=== PATIENT | female | born 1990 | race Two or more races ===

== ENCOUNTER 2017-03-10 16:12 | Inpatient (IN) | payer OTHER ==
[~2017-03-10] VITALS: Ht 160 cm; Wt 82.1 kg
[2017-03-10 16:34] VITALS: BP 114/80; PULSE 91; RESP 20; Ht 160 cm; Wt 82.1 kg
[2017-03-10] MEDS ORDERED: PRENAT PO (17:39)
--- NOTE | 2017-03-10 17:52 | RADRPT ---
PROCEDURE: US biophysical profile. CLINICAL INDICATION: Decreased motion. TECHNIQUE: Multiple sonographic images of the uterus were obtained. The images were revi ewed on a PACS workstation. COMPARISON: No prior studies are available for comparison. FINDINGS: There is a single live intrauterine gestation. heart rate is 139 beats per minute. The position is cephalic. The placenta is anterior grade II with no abruption or previa. The STACY is 12.4 cm. (Normal = 5-20 cm.) Breathing Movement: 2 Gross Body Movement: 2 Tone: 2 Qualitative Amniotic Fluid Volume: 2 TOTAL: 8 IMPRESSION: 1. The biophysical score is 8/8. RPTAT: QQ .Conor Schneider MD, MD Date Time Electronically viewed and signed by .Conor Schneider MD, on 03/10/2017 17:52 .R/
[2017-03-10 18:03] LABS: ADD UMIC NO; UR ASCORBIC ACID NEGATIVE (NEGATIVE); UR BILIRUBIN (Dip) NEGATIVE (NEGATIVE); UR BLOOD (Dip) NEGATIVE (NEGATIVE); UR CLARITY CLEAR (CLEAR); UR COLOR YELLOW (YELLOW); UR GLUCOSE (Dip) NEGATIVE (NEGATIVE); UR KETONES (Dip) NEGATIVE (NEGATIVE); UR LEUKOCYTE ESTERASE (Dip) NEGATIVE Leu/ul (NEGATIVE); UR NITRITE (Dip) NEGATIVE (NEGATIVE); UR SPECIFIC GRAVITY (Dip) 1.013 (1.003-1.030); UR TOTAL PROTEIN (Dip) NEGATIVE (NEGATIVE); UR UROBILINOGEN (Dip) NEGATIVE (NEGATIVE)
--- NOTE | 2017-03-10 18:48 | RADRPT ---
PROCEDURE: Obstetrical ultrasound CLINICAL INDICATION: POSTDATES, low STACY TECHNIQUE: Multiple sonographic images of the pelvis were obtained. The images were reviewed on a PACS workstation. COMPARISON: None FINDINGS: The cervix is not well visualized. There is a single viable intrauterine gestation. Cardiac activity is present with 129 beats per minute. There is a vertex presentation. The placenta is anterior. There is no evidence for an abruption or placenta previa. There is a subjectively normal amount of amniotic fluid. Measurements were made in order to determine age. The results are as follows (cm): BPD =9.62 HC =34.31 AC =35.18 FL =7.64 Estimated gestational age by ultrasound of approximately 39 weeks, 2 days. The estimated date of delivery by ultrasound is 03/15/2017. Estimated gestational age by LMP of approximately 40 weeks, 1 day. The estimated date of delivery by LMP is 03/09/2017. EFW = 3706 grams (55th percentile) IMPRESSION: Single viable intrauterine gestation of approximately 39 weeks, 2 days . The estimated date of delivery is 03/15/2017 . Dating by ultrasound is within 6 days of dating by LMP. Cephalic presentation. Subjectively normal amount of amniotic fluid. Estimated weight is in the 55th percentile. RPTAT: EE Physician Oalf Date Time Electronically viewed and signed by Physician Olaf on 03/10/2017 18:48 /
[2017-03-10] MEDS ORDERED: DINOPROSTONE 10 MG VAG SUPP VAG ONE (23:30)
[2017-03-10] MEDS ORDERED: OXYTOCIN 30 UNITS/LR 500 ML IV PRN (23:30)
[2017-03-10] MEDS ORDERED: OXYTOCIN 30 UNITS/LR 500 ML IV SCH ×2 (23:30)
[2017-03-10] MEDS ORDERED: METHYLERGONOVINE 0.2 MG INJ IM PRN (23:30)
[2017-03-10] MEDS ORDERED: CARBOPROST 250 MCG INJ IM PRN (23:30)
[2017-03-10] MEDS ORDERED: IBUPROFEN 600 MG TAB PO PRN (23:30)
[2017-03-10] MEDS ORDERED: LIDOCAINE 1% (MPF) 30 ML INJ INJ PRN (23:30)
[2017-03-10] MEDS ORDERED: MISOPROSTOL 200 MCG TAB PR PRN (23:30)
[2017-03-10] MEDS ORDERED: ACETAMINOPHEN/CODEINE #3 TAB PO PRN (23:30)
[2017-03-10] MEDS ORDERED: BUTORPHANOL 2 MG INJ IV PRN (23:30)
--- NOTE | 2017-03-11 00:12 | HP ---
Date/Time of Note Date/Time of Note DATE: 03/11/17 TIME: 00:06 OB - History Hx of Present Free Text/Dictation 26 years old with IUP at 40 weeks and 4 days presented with complaint of contractions. She was noted to have minimal cervical change. requested induction for post date. Denies any LOF. vaginal bleeding or decreased movement. BRENDAN:03/06/2017 exam : 1/60/-2 vertex. FHT: cat 1 Chief Complaint: labor pain Estimated Due Date: Mar 06, 2017 : 2 Para: 0 Spontaneous : 0 Care: Good Care Medical Complications: None Past Family/Social History * Past Medical, Surgical, Family and Obstetric Histories reviewed from chart. OB Admission Exam Vital Signs Vital Signs Vital Signs Date Time Temp Pulse Resp B/P Pulse Ox O2 Delivery O2 Flow Rate FiO2 03/10/17 16:34 98.5 91 20 114/80 Room Air Physical Exam HEENT: WNL Heart: Rhythm Normal Lungs: Clear Abdomen: WNL Extremities: Normal Reflexes: Normal Cervical Dilatation: 1cm Effacement: 25% Station: -2 Heart Rate: 130's Accelerations: Accelerations Present Decelerations: No Decelerations Varibility: Moderate Contractions on Admission: < 5 Minutes Apart Intensity: Moderate OB Assessment/Plan Other Assessment: IUP at 40 weeks and 4 days Early labor Post date Unfavorable cervix Cat 1 tracing Requests induction for post date Risks and benefits of induction including increased risk for section discussed Candidate for cervidil induction Anticipate Obtain GBS results DAMASO AMOS MD Mar 11, 2017 00:12
--- NOTE | 2017-03-11 01:01 | TRIAGE ---
OB Triage Datetime Report Generated by CPN: 03/11/2017 01:01 Datetime: 03/11/2017 00:30 Stage of : OB Triage Labor Evaluation Frequency: 1.5-4 Monitor Mode: External Duration (sec)2399: 70-90 Quality: Moderate Pattern: Normal: <= 5 Contractions in 10 Minutes Resting Tone [place]: Relaxed Heart Rate FHR Baseline Rate: 130 Monitor Mode: External US Variability: Moderate 6-25 bpm Accelerations: 15X15 Decelerations: None Category: Category I Pain Assessment Pain Scale: 5 Pain Presence: Intermittent Pain Type: Contraction Pain Location: Abdomen Pain Goal: 3 Datetime: 03/10/2017 23:18 Stage of : OB Triage Datetime: 03/10/2017 22:15 Stage of : OB Triage Vaginal Exam Dilatation (cms): 1.0 Effacement (%): 70 Station: -2 Exam By: SOLANO,YANN Datetime: 03/10/2017 21:40 Stage of : OB Triage Monitor Mode: External Datetime: 03/10/2017 21:26 Stage of : OB Triage Contraction Comments: PT BACK TO BED AFTER AN HOUR AMBULABORY, MONITOR REATTACHED. Datetime: 03/10/2017 20:09 Stage of : OB Triage Datetime: 03/10/2017 20:07 Stage of : OB Triage Vaginal Exam Dilatation (cms): 1.0 Effacement (%): 70 Station: -2 Exam By: YANN SOLANO Datetime: 03/10/2017 19:52 Stage of : OB Triage Contraction Comments: PT BACK TO BED AFTER AN HOUR AMBULATORY, MONITORS REATTACHED. WILL MONITOR U Cs, RECHECK SVE AFTER 20 MINUTES. Datetime: 03/10/2017 19:27 Stage of : OB Triage Datetime: 03/10/2017 19:20 Stage of : OB Triage Datetime: 03/10/2017 18:30 Labor Evaluation Frequency: 4-7 Monitor Mode: External Duration (sec)2399: 60-110 Quality: Strong Pattern: Normal: <= 5 Contractions in 10 Minutes Resting Tone [place]: Relaxed Heart Rate FHR Baseline Rate: 120 Monitor Mode: External US FHR Baseline Changes: No Baseline Change Variability: Moderate 6-25 bpm Accelerations: 15X15 Decelerations: None Category: Category I Pain Assessment Pain Scale: 5 Pain Presence: Intermittent Pain Type: Cramping Pain Location: Abdomen Pain Goal: 2 Pain Relief Measures: Comfort Measures Datetime: 03/10/2017 18:00 Labor Evaluation Frequency: 2-8 Monitor Mode: External Duration (sec)2399: 60-90 Quality: Moderate Pattern: Normal: <= 5 Contractions in 10 Minutes Resting Tone [place]: Relaxed Heart Rate FHR Baseline Rate: 130 Monitor Mode: External US FHR Baseline Changes: No Baseline Change Variability: Moderate 6-25 bpm Accelerations: 15X15 Decelerations: None Category: Category I Pain Assessment Pain Scale: 5 Pain Presence: Intermittent Pain Type: Cramping Pain Location: Abdomen Pain Goal: 2 Pain Relief Measures: Comfort Measures Datetime: 03/10/2017 17:30 Labor Evaluation Frequency: 2-8 Monitor Mode: External Duration (sec)2399: 60-110 Quality: Moderate Pattern: Normal: <= 5 Contractions in 10 Minutes Resting Tone [place]: Relaxed Heart Rate FHR Baseline Rate: 130 Monitor Mode: External US FHR Baseline Changes: No Baseline Change Variability: Moderate 6-25 bpm Accelerations: 15X15 Decelerations: None Category: Category I Pain Assessment Pain Scale: 5 Pain Presence: Intermittent Pain Type: Cramping Pain Location: Abdomen Pain Goal: 2 Pain Relief Measures: Comfort Measures Membrane Status: Intact Datetime: 03/10/2017 17:07 Vaginal Exam Dilatation (cms): 1.0 Effacement (%): 60 Station: -2 Exam By: MAY Vaginal Bleeding: None Cervix, Consistency: Soft Cervix, Position: Posterior Presentation 'A': Cephalic Datetime: 03/10/2017 17:00 Labor Evaluation Frequency: 4-7 Monitor Mode: External Duration (sec)2399: 60-100 Quality: Strong Pattern: Normal: <= 5 Contractions in 10 Minutes Resting Tone [place]: Relaxed Heart Rate FHR Baseline Rate: 120 Monitor Mode: External US FHR Baseline Changes: No Baseline Change Variability: Moderate 6-25 bpm Accelerations: 15X15 Decelerations: None Category: Category I Pain Assessment Pain Scale: 5 Pain Presence: Intermittent Pain Type: Cramping Pain Location: Abdomen Pain Goal: 2 Pain Relief Measures: Comfort Measures Membrane Status: Intact Datetime: 03/10/2017 16:41 EGA: 40.4 Datetime: 03/10/2017 16:36 Time of Arrival: 03/10/2017 16:05 Arrived By: Ambulatory Arrived From: Dr. Office Chief Complaint: CONTRACTIONS Movement: Present Rupture of Membranes: Denies Vaginal Bleeding: None Vaginal Discharge: Denies Recent Sexual Intercouse: Denies Abdominal Trauma: Not Applicable Patient Complaints: Contractions Time Provider Notified: 03/11/2017 18:14 Initial Plan: EFM Datetime: 03/10/2017 16:31 Monitor Mode: External Monitor Mode: External US Pain Assessment Pain Scale: 5 Pain Presence: Intermittent Pain Type: Cramping Pain Location: Abdomen Pain Relief Measures: Comfort Measures Membrane Status: Intact Datetime: 03/10/2017 16:30 Stage of : OB Triage Assessment Type: Triage Maternal Assessment Level of Consciousness: Fully Conscious DTR's/Clonus: DTRs 2+; No Clonus Headache: Denies Blurred Vision: No Respiratory Effort: Unlabored; Regular Rhythm; Equal Expansion Nausea/Vomiting: Denies RUQ Epigastric Pain: Denies Lower Extremities Edema: None Degree: None Upper Extremities Edema: None Degree: None Facial Edema: None Fall Risk Assessment History of Falling: (0) No Secondary Diagnosis: (0) No Ambulatory Aid: (0) Bedrest/Nurse Assist IV Therapy: (0) No Gait: (0) Normal/Bedrest/Immobile Mental Status: (0) Oriented to Own Ability Fall Score: 0 Fall Risk Score Definition: No Risk: No action required Datetime: 03/10/2017 00:00 Stage of : OB Triage Labor Evaluation Frequency: 1.5-6 Monitor Mode: External Duration (sec)2399: 60-90 Quality: Moderate Pattern: Normal: <= 5 Contractions in 10 Minutes Resting Tone [place]: Relaxed Heart Rate FHR Baseline Rate: 130 Monitor Mode: External US Variability: Moderate 6-25 bpm Accelerations: 15X15 Decelerations: None Category: Category I Pain Assessment Pain Scale: 5 Pain Presence: Intermittent Pain Type: Contraction Pain Location: Abdomen Pain Goal: 3
[2017-03-11] MEDS: LACTATED RINGER'S 1,000 ML IV SCH ×3 (02:46→16:06)
[2017-03-11 03:29] LABS: ADD SCAN DIFF NO
[2017-03-11 03:34] LABS: BASOPHILS % 0.4 % (0.0-2.0); EOSINOPHILS % 0.4 % (0.0-7.0); HEMATOCRIT 40.3 % (37.0-47.0); HEMOGLOBIN 13.5 g/dl (12.0-16.0); LYMPHOCYTES # 2.5 10^3/ul (0.8-2.9); LYMPHOCYTES % 22.4 % (15.0-51.0); MEAN CORPUSCULAR HEMOGLOBIN 29.6 pg (29.0-33.0); MEAN CORPUSCULAR HGB CONC 33.5 g/dl (32.0-37.0); MEAN CORPUSCULAR VOLUME 88.4 fl (82.0-101.0); MONOCYTE # 0.5 10^3/ul (0.3-0.9); MONOCYTES % 4.9 % (0.0-11.0); NEUTROPHILS % 71.7 % (39.0-77.0); PLATELET COUNT 195 10^3/UL (140-415); RED BLOOD COUNT 4.56 10^6/ul (4.20-5.40); RED CELL DISTRIBUTION WIDTH 13.2 % (11.5-14.5); WHITE BLOOD COUNT 11.1 10^3/ul (4.8-10.8)
[2017-03-11 03:57] LABS: INR 0.95; PROTIME 12.7 Sec (12.2-14.2)
[2017-03-11 03:58] LABS: PARTIAL THROMBOPLASTIN TIME 29.7 Sec (25.0-35.0)
[2017-03-11] MEDS ORDERED: LACTATED RINGER'S 1,000 ML IV PRN (06:00)
[2017-03-11] MEDS ORDERED: FENTAnyl 2MCG/ML-ROPIV 0.2% 100 ML ONE (07:54)
[2017-03-11] MEDS ORDERED: OXYTOCIN 30 UNITS/LR 500 ML IV SCH ×2 (11:00→22:24)
[2017-03-11] MEDS ORDERED: FENTAnyl 2MCG/ML-ROPIV 0.2% 100 ML BAG EPI SCH (13:00)
[2017-03-11] MEDS ORDERED: ONDANSETRON 4 MG INJ IV PRN (13:00)
[2017-03-11] MEDS ORDERED: NALOXONE (0.4 MG/ML) INJ IV PRN (13:00)
[2017-03-11] MEDS ORDERED: DIPHENHYDRAMINE 50 MG INJ IV PRN (13:00)
[2017-03-11 21:50] VITALS: BP 106/62; PULSE 73; RESP 20
[2017-03-11] MEDS ORDERED: LACTATED RINGER'S 1,000 ML IV* SCH (22:24)
[2017-03-11] MEDS ORDERED: MISOPROSTOL 200 MCG TAB PR PRN (22:30)
[2017-03-11] MEDS ORDERED: OXYTOCIN 30 UNITS/LR 500 ML IV PRN (22:30)
[2017-03-11] MEDS ORDERED: LANOLIN 7 GM TUBE TOP PRN (22:30)
[2017-03-11] MEDS ORDERED: METHYLERGONOVINE 0.2 MG INJ IM PRN (22:30)
[2017-03-11] MEDS ORDERED: ACETAMINOPHEN/CODEINE #3 TAB PO PRN ×2 (22:30)
[2017-03-11] MEDS ORDERED: DIBUCAINE 1% 30 GM OINT PR PRN (22:30)
[2017-03-11] MEDS ORDERED: WITCH HAZEL/GLYCERIN PAD PR PRN (22:30)
[2017-03-11] MEDS ORDERED: BENZOCAINE 20% 56 ML SPRAY TOP PRN (22:30)
[2017-03-11] MEDS ORDERED: CARBOPROST 250 MCG INJ IM PRN (22:30)
[2017-03-11] MEDS: SENNA/DOCUSATE NA (8.6MG/50MG) TAB PO SCH (23:18)
[2017-03-12 04:00] VITALS: BP 103/69; PULSE 65; RESP 18
[2017-03-12] MEDS: IBUPROFEN 600 MG TAB PO SCH ×3 (06:01→18:00)
[2017-03-12 07:45] VITALS: BP 95/67; PULSE 72; RESP 18
[2017-03-12] MEDS: MULTIVIT/MIN/FOLATE/IRON/PREN TAB PO SCH (09:06)
[2017-03-12] MEDS: SENNA/DOCUSATE NA (8.6MG/50MG) TAB PO SCH ×2 (09:06→20:38)
[2017-03-12 09:34] LABS: BASOPHILS % 0.2 % (0.0-2.0); EOSINOPHILS # 0.2 10^3/ul (0.0-0.5); EOSINOPHILS % 1.1 % (0.0-7.0); HEMATOCRIT 37.4 % (37.0-47.0); HEMOGLOBIN 12.6 g/dl (12.0-16.0); LYMPHOCYTES # 2.3 10^3/ul (0.8-2.9); LYMPHOCYTES % 13.8 % (15.0-51.0); MEAN CORPUSCULAR HEMOGLOBIN 30.7 pg (29.0-33.0); MEAN CORPUSCULAR HGB CONC 33.7 g/dl (32.0-37.0); MEAN CORPUSCULAR VOLUME 91.2 fl (82.0-101.0); MEAN PLATELET VOLUME 11.8 fl (7.4-10.4); MONOCYTE # 0.7 10^3/ul (0.3-0.9); MONOCYTES % 4.3 % (0.0-11.0); NEUTROPHIL # 13.4 10^3/ul (1.6-7.5); PLATELET COUNT 173 10^3/UL (140-415); RED CELL DISTRIBUTION WIDTH 13.5 % (11.5-14.5); WHITE BLOOD COUNT 16.8 10^3/ul (4.8-10.8)
[2017-03-12 09:38] LABS: ADD SCAN DIFF NO
--- NOTE | 2017-03-12 10:08 | PN ---
Date/Time of Note Date/Time of Note DATE: 03/12/17 TIME: 10:06 OB Subjective Subjective Subjective March 12, 2017 day 1 hospital visit Post day 1 Patient is doing well, Ambulatory She is afebrile Abdomen is soft , Fundus is firm Moderate amount of lochia Breasts are soft, Nipples are intact No calf tenderness. Perineum is healing well. Breast feeding the new born. Laboratory Tests Test 03/12/17 07:15 White Blood Count 16.810^3/ul Red Blood Count 4.1010^6/ul Hemoglobin 12.6g/dl Hematocrit 37.4% Mean Corpuscular Volume 91.2fl Mean Corpuscular Hemoglobin 30.7pg Mean Corpuscular Hemoglobin Concent 33.7g/dl Red Cell Distribution Width 13.5% Platelet Count 59565^3/UL Mean Platelet Volume 11.8fl Neutrophils % 80.0% Lymphocytes % 13.8% Monocytes % 4.3% Eosinophils % 1.1% Basophils % 0.2% Nucleated Red Blood Cells % 0.0/100WBC Neutrophils # 13.410^3/ul Lymphocytes # 2.310^3/ul Monocytes # 0.710^3/ul Eosinophils # 0.210^3/ul Basophils # 0.010^3/ul Nucleated Red Blood Cells # 0.010^3/ul Current Medications Medications (Trade) Dose Ordered Sig/Bill Route PRN Reason Start Time Stop Time Status Last Admin Dose Admin Lactated Ringer's (Lr) 1,000 ml @ 125 mls/hr Q8H IV 03/10/17 23:28 03/11/17 22:26 DC 03/11/17 16:06 Dinoprostone (Cervidil Vaginal Supp) 10 mg ONCE ONCE VAG 03/10/17 23:30 03/10/17 23:54 DC 03/11/17 02:47 Butorphanol Tartrate (Stadol) 2 mg Q2H PRN IV PAIN 03/10/17 23:30 03/11/17 22:26 DC Lidocaine 30 ml 30 ml ONCE PRN INJ EPISIOTOMY/TEARING 03/10/17 23:30 03/11/17 22:26 DC 03/11/17 19:45 Oxytocin/Lactated Ringer's 500 ml @ 125 mls/hr ONCE -MAY REPEAT X1 IV 03/10/17 23:30 03/11/17 22:26 DC 03/11/17 19:49 Oxytocin/Lactated Ringer's 500 ml @ 125 mls/hr ONCE IV 03/10/17 23:30 03/11/17 22:26 DC Ibuprofen (Motrin) 600 mg ONCE PRN PO Mild Pain (Pain Score 1-3) 03/10/17 23:30 03/11/17 22:26 DC 03/11/17 19:56 Acetaminophen/ Codeine Phosphate 2 tab 2 tab ONCE PRN PO Moderate to Severe Pain (4-10) 03/10/17 23:30 03/11/17 22:26 DC Lactated Ringer's 1,000 ml @ 2,000 mls/hr Q30M PRN IV PRE-EPIDURAL BOLUS 03/11/17 06:00 03/11/17 22:26 DC 03/11/17 08:00 Oxytocin/Lactated Ringer's 500 ml @ 0 mls/hr ONCE PRN IV For Hemorrhage Management 03/10/17 23:30 03/11/17 22:26 DC Methylergonovine Maleate (Methergine) 0.2 mg ONCE PRN IM VAGINAL BLEEDING 03/10/17 23:30 03/11/17 22:26 DC Carboprost Tromethamine (Hemabate) 250 mcg ONCE PRN IM VAGINAL BLEEDING 03/10/17 23:30 03/11/17 22:26 DC Misoprostol 1000 mcg 1,000 mcg ONCE PRN IL VAGINAL BLEEDING 03/10/17 23:30 03/11/17 22:26 DC Fentanyl/ Ropivacaine 100 ml @ ud STK-MED ONCE .ROUTE 03/11/17 07:54 03/11/17 07:55 DC Oxytocin/Lactated Ringer's 500 ml @ 0 mls/hr Q0M IV 03/11/17 11:00 03/11/17 22:27 DC 03/11/17 11:08 Naloxone HCl (Narcan) 0.1 mg Q2M PRN IV FOR RESP RATE 8 OR LESS 03/11/17 13:00 03/11/17 22:27 DC Diphenhydramine HCl (Benadryl) 25 mg Q6H PRN IV ITCHING 03/11/17 13:00 03/11/17 22:27 DC Ondansetron HCl (Zofran Inj) 4 mg Q6H PRN IV NAUSEA AND/OR VOMITING 03/11/17 13:00 03/11/17 22:27 DC Fentanyl/ Ropivacaine 100 ml 100 ml EPIDURAL INFUSION EPI 03/11/17 13:00 03/11/17 22:27 DC 03/11/17 16:07 Oxytocin/Lactated Ringer's 500 ml @ 125 mls/hr Q4H IV 03/11/17 22:24 03/12/17 06:23 DC 03/11/17 23:02 Lactated Ringer's (Lr) 1,000 ml @ 125 mls/hr Q8H IV* 03/11/17 22:24 03/12/17 06:23 DC Ibuprofen (Motrin) 600 mg Q6 PO 03/12/17 00:00 03/12/17 06:01 Acetaminophen/ Codeine Phosphate (Tylenol No.3) 1 tab Q4H PRN PO PAIN LEVEL 1-5 03/11/17 22:30 Acetaminophen/ Codeine Phosphate (Tylenol No.3) 2 tab Q4H PRN PO PAIN LEVEL 6-10 03/11/17 22:30 Senna/Docusate Sodium (Senokot-S) 1 tab BID PO 03/11/17 22:30 03/12/17 09:06 Witch Joellen/ Glycerin (Tucks Pads) 1 pad BEDSIDE MEDICATION PRN IL HEMORRHOID/EPISIOTMY PAIN 03/11/17 22:30 03/11/17 23:18 Benzocaine (Dermoplast [place]) 1 spray BEDSIDE MEDICATION PRN TOP HEMORRHOID/EPISIOTMY PAIN 03/11/17 22:30 03/11/17 23:18 Dibucaine (Nupercainal) 1 applic BEDSIDE MEDICATION PRN IL HEMORRHOID/EPISIOTMY PAIN 03/11/17 22:30 Lanolin 1 applic 1 applic BEDSIDE MEDICATION PRN TOP BEDSIDE FOR JAIDEN TO NIPPLES 03/11/17 22:30 Oxytocin/Lactated Ringer's 500 ml @ 0 mls/hr ONCE PRN IV For Hemorrhage Management 03/11/17 22:30 Methylergonovine Maleate (Methergine) 0.2 mg ONCE PRN IM VAGINAL BLEEDING 03/11/17 22:30 Carboprost Tromethamine (Hemabate) 250 mcg ONCE PRN IM VAGINAL BLEEDING 03/11/17 22:30 Misoprostol (Cytotec) 1,000 mcg ONCE PRN IL VAGINAL BLEEDING 03/11/17 22:30 Prenat Multivit/ Automat Watcher/Iron/Folic Ac ( S) 1 tab DAILY PO 03/12/17 09:00 03/12/17 09:06 CHRISTOS GILLETTE MD Mar 12, 2017 10:07
[2017-03-12 12:58] VITALS: BP 97/65; PULSE 70; RESP 18
[2017-03-12 15:20] VITALS: BP 91/65; PULSE 68; RESP 18
[2017-03-12 19:50] VITALS: BP 99/65; PULSE 60; RESP 19
[2017-03-13] MEDS: IBUPROFEN 600 MG TAB PO SCH ×3 (00:02→12:18)
[2017-03-13 08:00] VITALS: BP 98/63; PULSE 66; RESP 18
[2017-03-13] MEDS: MULTIVIT/MIN/FOLATE/IRON/PREN TAB PO SCH (08:33)
[2017-03-13] MEDS: SENNA/DOCUSATE NA (8.6MG/50MG) TAB PO SCH (08:33)
--- NOTE | 2017-03-13 13:49 | QN ---
Documentation Comment PPD#2 is stable afebrile tolerates diet No VB +BM +voids VS stable Gen NAD Abd soft NT Genitalia No blood at perinium --->discharge plan --->ambulation ANTWON RIVERO M.D. Mar 13, 2017 13:49
--- NOTE | 2017-03-13 13:50 | DS ---
Date/Time of Note Date/Time of Note DATE: 03/13/17 TIME: 13:49 Discharge Summary Admission/Discharge Info Admit Date/Time Mar 10, 2017 at 23:18 Discharge Date/Time Discharge Diagnosis postdate Labor Patient Condition: Stable Procedures Vaginal delivery Hospital Course uneventful Home Meds Reported Medications Multivit/Min/Fol Ac/Iron/Pren* ( S*) 1 Tab Tab, 1 TAB PO DAILY, TAB 03/10/17 Primary Care Provider Care Physician No ANTWON Garay M.D. Mar 13, 2017 13:50
--- NOTE | 2017-03-14 11:37 | OPPN ---
Date/Time of Note Date/Time of Note DATE: 03/14/17 TIME: 11:37 Anesthesia Follow up Anesthesia Follow up Last documented vital signs Vital Signs Date Time Temp Pulse Resp B/P Pulse Ox O2 Delivery O2 Flow Rate FiO2 03/13/17 12:15 Room Air 03/13/17 08:00 98.2 66 18 98/63 Respiratory function: WNL Cardiovascular function: WNL Comments satisfactory recovery from anesthesia JOSE WARE Mar 14, 2017 11:37
== END 2017-03-13 15:40 | disposition home or self-care (01) | DRG 775 ==
LOC: OBT 16:12 → L-D 16:12 → OBT 23:18 → PP1 03-11 21:43
PROVIDERS: ADMIT Obstetrics & Gynecology Obstetrics; ATTEND Obstetrics & Gynecology Obstetrics
PROC: 10E0XZZ Delivery of Products of Conception, External Approach (ICD-10-PCS; principal; 2017-03-10)
PROC: 3E033VJ Introduction of Other Hormone into Peripheral Vein, Percutaneous Approach (ICD-10-PCS; 2017-03-10)
DX: O48.0 Post-term pregnancy (principal); Z37.0 Single live birth; Z3A.40 40 weeks gestation of pregnancy
CPT/HCPCS: 59025; 62319; 76815; 76818; 81003; 85025; 85610; 85730; 86592; 86900; 86901; 87340; G0463; J2590; J3010; J7120